=== PATIENT | male | born 1950 | race Caucasian/White ===

== ENCOUNTER 2023-10-24 11:00 | Outpatient (RCR) | payer MEDICARE, BC, SELFPAY | END 2023-12-19 11:32 | disposition home or self-care (01) | LOC: HO.PT 11:00 | PROVIDERS: PCP Internal Medicine; Visit Provider Physical Medicine & Rehabilitation Sports Medicine | DX: M17.12 Unilateral primary osteoarthritis, left knee (principal) | CPT/HCPCS: 97110; 97112; 97162; 97164 ==